=== PATIENT | female | born 1985 | race Two or more races ===

== ENCOUNTER 2016-11-17 13:55 | Emergency (ER) | payer MEDICAID ==
[~2016-11-17 13:55] MED LIST: ADVIL100 M2 PO; ALBUTEROL I0.5 ML/EA AERO NEB; ALBUTEROL SULF8.5 GM IH; ALBUTEROL0.83 MG/ML INH; ALBUTEROL17 GM; ALBUTEROL17 GM INH; AMOXIL500 M1 PO; CHERATUSSIN AC118 M1 PO; CIPRO250 MG PO; CLINDAMYCIN HC300 MG PO; CORTISPORIN EAR10 M LEFT EAR; CORTISPORIN EAR10 ML OT; DAY TIME COLD-237 M1 PO; DELTASONE50 MG PO; DEPO-PROVE150 MG/1 M IM; DOXY-LEMMON100 M PO; FLOXIN10 ML OT; MAPAP500 M3 PO; NASALCROM40 MG/ML NS; NIGHTTIME COLD; NORCO 5-325 TA1 EACH PO; NORCO 5/325 TAB1 TAB PO; NYQUIL D COLD295 M1 PO; PERCOCET 5/3251 TAB PO; PHENERGAN W/CO120 M1 PO; PREDNISONE; PREDNISONE10 M1 PO; PREDNISONE10 MG PO; PREDNISONE20 MG PO; PRENATAL VITAM1 EA11 PO; PRENATAL1 TAB PO; PROAIR HFA8.5 GM IH; PROMETHAZINE V240 ML PO; PROMETHAZINE/COD5 ML PO; TESSALON200 MG PO; TYLENOL COLD &1 EAC1 PO; TYLENOL325 M2 PO; TYLENOL500 MG PO; VIBRAMYCIN100 MG/TA1 PO; ZITHROMAX TRI-500 MG PO; ZITHROMAX250MG Z-PAK PO; ZYRTEC1010 PO; [UNRECOGNIZED DRUG - OTHER]
[2016-11-17] MEDS ORDERED: AZITHROMYCIN250 M1 PO (15:41)
[2016-11-17] MEDS ORDERED: PROAIR HFA8.5 GM (15:41)
[2016-11-17] MEDS ORDERED: PROMETHAZINE-C118 ML PO (15:41)
[2016-12-30] MEDS ORDERED: VENTOLIN HFA18 G2 PO (16:01)
[2016-12-30] MEDS ORDERED: PROMETHAZINE-C118 ML PO (16:01)
[2017-01-13] MEDS ORDERED: GUAIFENESIN-CODE5 M1 PO ×2 (19:41→19:42)
== END 2016-11-17 15:52 ==
LOC: EDMED 13:55
DX: R05 Cough (principal); J45.909 Unspecified asthma, uncomplicated; Z88.5 Allergy status to narcotic agent; Z88.8 Allergy status to other drugs, medicaments and biological substances; Z98.51 Tubal ligation status